=== PATIENT | male | born 1950 | race Hispanic/Latino ===

== ENCOUNTER 2021-10-16 09:24 | Emergency (ER) | payer OTHER ==
--- OUTSIDE RECORDS SUMMARY | 2021-10-16 09:27 | XMS REPORT | Continuity of Care Document ---
:1950 Author Organization [facility] t Address [address] [place] [address] [address]. [address] [place] [address] Care Team Providers Name Role Phone JOSEPH EVANS Primary Care Physician Unavailable Iris Evans Attending Clinician Unavailable Leanne Odell RN Attending Clinician Unavailable Only, Db Test Attending Clinician Unavailable Tony HENDRIX Attending Clinician TONY Attending Clinician Unavailable Barbara GARCIA Attending Clinician Unavailable Payers Payer Name Policy Type Policy Number Effective Date Expiration Date S ource Problems Condition Condition Condition Status Onset Resolution Last Treating Co mments Source Name Details Category Date Date Treatment Clinician Date No known No known Disease Unive rs active active ity of problems problems [facility] Allergies, Adverse Reactions, Alerts Allergy Allergy Status Severity Reaction(s) Onset Inactive Treating Comm ents Source Name Type Date Date Clinician NO KNOWN Drug Active Univers ALLERGIE Class ity of S [facility] Social History Social Habit Start Date Stop Date Quantity Comments Source Exposure to Not sure [facility] SARS-CoV-2 (event) Medica l Branch Sex Assigned At [birth year] [facility] 00:00:00 00:00:00 [facility] Smoking Status Start Date Stop Date Source Unknown if ever smoked [facility] Medications Ordered Filled Start Stop Current Ordering Indication Dosage Frequency Signature Comments Components Source Medication Medication Date Date Medication? Clinician (SIG) Name Name traMADOL 50 2017-0 Yes 50mg Take 1 Univ ers mg tablet 1-22 tablet by ity o f 00:00: mouth [place] 00 every 6 Medical (six) Branch hours as needed for Pain (scale 4-6) for up to 20 doses. traMADOL 50 2017-0 Yes 50mg Take 1 Univ ers mg tablet 1-22 tablet by ity o f 00:00: mouth 00 every 6 Medical (six) Branch hours as needed for Pain (scale 4-6) for up to 20 doses. Procedures This patient has no known procedures. Encounters Start End Encounter Admission Attending Care Care Encounter Source Date/Time Date/Time Type Type Clinicians Facility Department ID 2021-07-20 Outpatient Evans, [facility] 13:43:34 Joseph [address] [facility] ent Clinics 2021-07-20 Outpatient Evans, [facility] 13:43:08 Joseph [id number] [facility] ent [facility] 2021-07-16 2021-07-16 Letter LEIDY Odell [id number] Univers 00:00:00 00:00:00 (Out) Grace ESPINO [id number] it y of [facility] [id number] Phill as [id number] [address] 2021-07-14 2021-07-14 Laboratory Only, Ang Db Test [facility] [id number] Univers 19:00:00 19:15:00 [id number] [facility] [id number] Phill as MARLEY?BLEA [id number] Sc dical [address] MED[facility] 2021-07-14 2021-07-14 Outpatient R TONY [facility] [id number] Univers 19:00:00 16:13:05 SINCERE [facility] 2020-09-01 2020-09-01 Outpatient R JOSE [facility] [id number] Univers 15:00:00 15:00:00 ABRAM [facility] Results This patient has no known results.
--- NOTE | 2021-10-16 11:05 | RAD REPORT ---
EXAM DESCRIPTION: RAD - Hand Right 3 View - 10/16/2021 10:15 am CLINICAL HISTORY: PAINhistory indicated third digit swelling with a splinter in the soft tissues. De creased range of motion in the involved digit COMPARISON: <Comparisons> none available FINDINGS: No fracture is identified. There is no dislocation or periosteal reaction noted. IP joint space narrowing is present with minimal spurring and no erosive component. Mild narrowing of the MCP joint spaces. Patient has severe degenerative change at trapezium first metacarpal articulation. Kaleigh nt space is effaced. Spurring and sclerotic changes along the articular margins are seen with remodel ing of the articular contour of each bone. Degenerative changes or possibly old trauma remodeling see n at the distal ulna. A thin metallic foreign body is seen in the soft tissues dorsal margin of the third digit near the mi ddle phalanx head. This may be the foreign body in question. Soft tissues of the fourth digit or ring finger appear prominent relative to the other digits. No foreign body is seen in the fourth digit. IMPRESSION: A 3 millimeter long thin metallic foreign body is seen in the dorsal soft tissues third digit near the middle phalanx head. Correlation is needed to determine if this is the site of suspect ed foreign body. Soft tissues of the fourth digit appear swollen relative to the other digits. This needs correlation. There is no foreign body identifiable in the fourth digit. No acute or destructive bone process seen. Joint degenerative changes are present as detailed.
--- NOTE | 2021-10-16 11:30 | EDPHYS ---
Physician Documentation [facility] Name: Sundar Nguyen Age: 70 yrs Sex: Male : 1950 Arrival Date: 10/16/2021 Time: 09:27 Bed 18 Private MD: Joseph Dumont E ED Physician Johnathan Mccullough HPI: 10/16 10:25 This 70 yrs old Male presents to ER via Ambulatory with complaints of Finger ma2 Pain. 10:25 This is a 70-year-old male, who had a splinter in his right middle finger 3 days ago ma2 which he removed at home, he said that since then he has a mild swelling at the site pain, he states no vomiting diarrhea or fever,. Historical: - Allergies: :47 No Known Allergies; ll1 - PMHx: 09:47 Hypertensive disorder; Hypercholesterolemia; Depressive disorder; ll1 - Immunization history:: Adult Immunizations not up to date. - Social history:: Smoking status: Patient denies any tobacco usage or history of. - Family history:: not pertinent. ROS: 10:25 Constitutional: Negative for fever, chills, and weight loss. ma2 10:25 All other systems are negative. Exam: 10:25 Constitutional: This is a well developed, well nourished patient who is awake, alert, ma2 and in no acute distress. Chest/axilla: Normal chest wall appearance and motion. Nontender with no deformity. No lesions are appreciated. Cardiovascular: Regular rate and rhythm with a normal S1 and S2. No gallops, murmurs, or rubs. Normal PMI, no JVD. No pulse deficits. Respiratory: Lungs have equal breath sounds bilaterally, clear to auscultation and percussion. No rales, rhonchi or wheezes noted. No increased work of breathing, no retractions or nasal flaring. Abdomen/GI: Soft, non-tender, with normal bowel sounds. No distension or tympany. No guarding or rebound. No evidence of tenderness throughout. Back: No spinal tenderness. No costovertebral tenderness. Full range of motion. Skin: Warm, dry with normal turgor. Normal color with no rashes, no lesions, and no evidence of cellulitis. MS/ Extremity: Right middle finger shows localized area of redness and mild edema measures about 1 by half centimeter, there is no lump or fluctuance, area is mildly tender, there is no crepitation, there is no signs of tenosynovitis, specifically there is no pain with passive flexion or extension, all joints with full range of motion with no tenderness, there is no fusiform diffuse swelling as stated above swelling is localized and limited puncture site there is no other signs of tenosynovitis or deep hand infection or abscess otherwise pulses equal, no cyanosis. Neurovascular intact. Full, normal range of motion. Neuro: Awake and alert, GCS 15, oriented to person, place, time, and situation. Cranial nerves II-XII grossly intact. Motor strength 5/5 in all extremities. Sensory grossly intact. Cerebellar exam normal. Normal gait. Vital Signs: 09:45 BP 150 / 101; Pulse 66; Resp 18; Temp 98.1; Pulse Ox 100% ; Weight 88.45 kg; Height 5 ll1 ft. 8 in. (172.72 cm); Pain 10/10; 09:45 Body Mass Index 29.65 (88.45 kg, 172.72 cm) ll1 MDM: 10:01 Patient medically screened. ma2 10:25 Differential diagnosis: As detailed in physical exam part of this note, this is likely ma2 localized cellulitis due to puncture wound, unlikely due to synovitis, abscess or deep hand infection. Data reviewed: vital signs, nurses notes, EMS record. Counseling: I had a detailed discussion with the patient and/or guardian regarding: the historical points, exam findings, and any diagnostic results supporting the discharge/admit diagnosis, the presence of at least one elevated blood pressure reading (>120/80) during this emergency department visit, the need for outpatient follow up. Response to treatment: the patient's symptoms have markedly improved after treatment. 11:27 ED course: X-ray shows 3 mm metallic soft tissue in the distal middle finger, ma2 correlating clinically, there is no skin changes or edema or tenderness at the site. Rather, there I advised patient to start antibiotics return to ER for any worsening of symptoms, an follow-up with hand surgeon in [address]. If for any reason patient unable to follow-up return to ER immediately tomorrow. Patient articulates understanding. 10/16 09:50 Order name: XRAY Hand RIGHT 3 View; Complete Time: 11:25 ma2 Administered Medications: No medications were administered Disposition Summary: 10/16/21 11:30 Discharge Ordered Location: Home ma2 Condition: Stable ma2 Diagnosis - Cellulitis of right finger ma2 Followup: ma2 - With: Private Physician - When: Tomorrow - Reason: If symptoms return, Continuance of care Followup: ma2 - With: Paras Ibarra MD - When: Tomorrow - Reason: If symptoms return, Continuance of care Discharge Instructions: - Discharge Summary Sheet ma2 - Cellulitis, Adult ma2 Forms: - Medication Reconciliation Form ma2 - Thank You Letter ma2 - Antibiotic Education ma2 - Prescription Opioid Use ma2 Prescriptions: - Clindamycin HCl 300 mg Oral Capsule - take 1 capsule by ORAL route every 6 hours for 10 days; 40 capsule; Refills: 0, ma2 Product Selection Permitted - Diclofenac Sodium 75 mg Oral Tablet Sustained Release - take 1 tablet by ORAL route 2 times per day; 30 tablet; Refills: 0, Product ma2 Selection Permitted Signatures: Dispatcher [employer] EDMS Johnathan Mccullough MD MD ma2 Gaetano Navarro RN RN ll1 Corrections: (The following items were deleted from the chart) 11:29 11:27 ED course: X-ray shows 3 mm metallic soft tissue in the distal middle finger, ma2 correlating clinically, there is no skin changes or edema or tenderness at the site. Rather, there is puncture wound and edema more proximally and on the palmar aspect closer to the palm.. ma2
--- NOTE | 2021-10-16 11:30 | ER ---
Nurse's Notes [facility] Name: Sundar Nguyen Age: 70 yrs Sex: Male : 1950 Arrival Date: 10/16/2021 Time: 09:27 Bed 18 Private MD: Joseph Dumont E Diagnosis: Cellulitis of right finger Presentation: 10/16 09:45 Chief complaint: Patient states: Right third digit swelling that started a few days ago ll1 after receiving a splinter and patient has been digging in his finger to remove it. He is now unable to bend the hand due to the pain and swelling. Coronavirus screen: Client denies travel out of the [place] in the last 14 days. Ebola Screen: Patient denies travel to an Ebola-affected area in the 21 days before illness onset. Initial Sepsis Screen: Does the patient meet any 2 criteria? No. Patient's initial sepsis screen is negative. Does the patient have a suspected source of infection? No. Patient's initial sepsis screen is negative. Risk Assessment: Do you want to hurt yourself or someone else? Patient reports no desire to harm self or others. Onset of symptoms is unknown. 09:45 Method Of Arrival: Ambulatory ll1 09:45 Acuity: LISBET 4 ll1 Triage Assessment: 09:47 General: Appears in no apparent distress. comfortable, Behavior is calm, cooperative. ll1 Pain: Complains of pain in dorsal aspect of distal phalanx of right ring finger, dorsal aspect of middle phalanx of right ring finger, dorsal aspect of proximal phalanx of right ring finger, palmar aspect of distal phalanx of right ring finger, palmar aspect of middle phalanx of right ring finger, palmar aspect of proximal phalanx of right ring finger and right ring fingernail. Neuro: Level of Consciousness is awake, alert, obeys commands, Oriented to person, place, time, situation, Gait is steady, Speech is normal. Respiratory: Airway is patent Respiratory effort is even, unlabored, Respiratory pattern is regular, symmetrical. Derm: Skin is healthy with good turgor. Musculoskeletal: Swelling present in right ring finger, dorsal aspect of distal phalanx of right ring finger, dorsal aspect of middle phalanx of right ring finger, dorsal aspect of proximal phalanx of right ring finger, palmar aspect of distal phalanx of right ring finger, palmar aspect of middle phalanx of right ring finger and palmar aspect of proximal phalanx of right ring finger. Injury Description: Foreign body is located dorsal aspect of distal phalanx of right ring finger, dorsal aspect of middle phalanx of right ring finger, dorsal aspect of proximal phalanx of right ring finger, palmar aspect of distal phalanx of right ring finger, palmar aspect of middle phalanx of right ring finger and palmar aspect of proximal phalanx of right ring finger is a splinter. Historical: - Allergies: 09:47 No Known Allergies; ll1 - PMHx: 09:47 Hypertensive disorder; Hypercholesterolemia; Depressive disorder; ll1 - Immunization history:: Adult Immunizations not up to date. - Social history:: Smoking status: Patient denies any tobacco usage or history of. - Family history:: not pertinent. Screenin:50 Abuse screen: Denies threats or abuse. Denies injuries from another. Nutritional ll1 screening: No deficits noted. Tuberculosis screening: No symptoms or risk factors identified. Fall Risk None identified. Assessment: 10:45 Reassessment: No changes from previously documented assessment. Patient and/or family ll1 updated on plan of care and expected duration. Pain level reassessed. Patient is alert, oriented x 3, equal unlabored respirations, skin warm/dry/pink. 11:34 Reassessment: No changes from previously documented assessment. Patient and/or family ll1 updated on plan of care and expected duration. Pain level reassessed. Patient is alert, oriented x 3, equal unlabored respirations, skin warm/dry/pink. Vital Signs: 09:45 BP 150 / 101; Pulse 66; Resp 18; Temp 98.1; Pulse Ox 100% ; Weight 88.45 kg; Height 5 ll1 ft. 8 in. (172.72 cm); Pain 10/10; 09:45 Body Mass Index 29.65 (88.45 kg, 172.72 cm) ll1 ED Course: 09:27 Patient arrived in ED. ds1 09:27 Joseph Dumont MD is Private Physician. ds1 09:44 Johnathan Mccullough MD is Attending Physician. ma2 09:45 Gaetano Navarro RN is Primary Nurse. ll1 09:47 Triage completed. ll1 09:47 Arm band placed on. ll1 09:50 Patient has correct armband on for positive identification. Bed in low position. Call ll1 light in reach. Side rails up X 1. Pulse ox on. NIBP on. 10:17 XRAY Hand RIGHT 3 View In Process Unspecified. EDMS 11:30 Paras Ibarra MD is Referral Physician. nc2 11:34 No provider procedures requiring assistance completed. Patient did not have IV access ll1 during this emergency room visit. Administered Medications: No medications were administered Outcome: 11:30 Discharge ordered by . ma2 11:34 Discharged to home ambulatory. ll1 11:34 Condition: stable 11:34 Discharge instructions given to patient, Instructed on discharge instructions, follow up and referral plans. medication usage, wound care, Demonstrated understanding of instructions, follow-up care, medications, wound care, Prescriptions given X 2. 11:35 Patient left the ED. ll1 Signatures: Dispatcher [employer] [facility] Liz Richard ds1 Johnathan Mccullough MD MD ma2 Gaetano Navarro, RN RN ll1
[2021-10-16 11:39] VITALS: BP 150/101; TEMP 98.1; O2SAT 100
== END 2021-10-16 11:35 | disposition home or self-care (01) ==
LOC: ER 09:24
DX: L03.011 Cellulitis of right finger (principal); I10 Essential (primary) hypertension
CPT/HCPCS: 99283

== ENCOUNTER 2023-01-10 10:55 | Day surgery (SDC) | payer MEDICARE, OTHER ==
[2023-01-10] MEDS ORDERED: LIDOCAINE 1% MPF 30 ML VIAL ONE (11:30)
[2023-01-10] MEDS ORDERED: propofoL 200 MG/20 ML VIAL IV ONE (11:30)
[2023-01-10] MEDS: Ringers Lactate 1,000 ML IV ONE (11:35)
[2023-01-10] MEDS ORDERED: BUPIVACAINE 0.25% PF 10 ML VIAL ONE (12:08)
[2023-01-10] MEDS ORDERED: LIDOCAINE 1% 20 ML MDV ONE (12:08)
[2023-01-10] MEDS ORDERED: TRIAMCINOLONE ACETON 40 MG/ML VIAL ONE (12:08)
[2023-01-10 12:59] VITALS: O2SAT 97
[2023-01-10 13:23] VITALS: BP 116/65; TEMP 98
== END 2023-01-10 13:35 | disposition home or self-care (01) ==
LOC: PRE 10:55 → OR 13:35
PROVIDERS: ATTEND Pain Medicine Interventional Pain Medicine
PROC: 3E0U33Z Introduction of Anti-inflammatory into Joints, Percutaneous Approach (ICD-10-PCS; principal; 2023-01-10 12:45)
DX: M46.1 Sacroiliitis, not elsewhere classified (principal)
CPT/HCPCS: 27096; 77003; J2704; J2001 ×2; J3301; J7120; Q9967